=== PATIENT | male | born 1975 | race Caucasian/White ===

== ENCOUNTER 2022-07-15 19:52 | Emergency (ER) | payer SELFPAY ==
--- NOTE | 2022-07-15 20:31 | PC.NURSE ---
called x 3 to triage. no answer. [facility]
== END 2022-07-15 21:10 | disposition left against medical advice (07) ==
LOC: HO.ED 21:08
PROVIDERS: Emergency Provider Emergency Medicine
DX: R10.9 Unspecified abdominal pain (principal); Z79.899 Other long term (current) drug therapy